=== PATIENT | male | born 1960 | race Caucasian/White ===

== ENCOUNTER 2021-08-02 15:03 | Emergency (ER) | payer BC ==
[~2021-08-02] VITALS: Ht 170.2 cm; Wt 91.0 kg
[2021-08-02] MEDS ORDERED: ORPHENADRINE CITRATE 60 MG/2 ML VIAL. ONE (15:56)
[2021-08-02] MEDS ORDERED: KETOROLAC 15 MG/ML VIAL. ONE (15:56)
[2021-08-02] MEDS ORDERED: ORPHENADRINE CITRATE 60 MG/2 ML VIAL. IM ONE (16:00)
[2021-08-02] MEDS ORDERED: KETOROLAC 15 MG/ML VIAL. IVP ONE (16:00)
[2021-08-02] MEDS ORDERED: HYDROcodone/APAP 5/325MG 1 TAB TABLET PO ONE (17:00)
--- NOTE | 2021-08-02 17:38 | RAD ---
EXAMINATION: CT lumbar spine without IV contrast. INDICATION:60 years, Male, low back pain. TECHNIQUE: Axial CT images of the lumbar spine was obtained. Coronal and sagittal reformatted perform ed. COMPARISON: None.. Exposure: One or more of the following individualized dose reduction techniques were utilized for thi s examination: 1. Automated exposure control 2. Adjustment of the mA and/or kV according to patient size 3. Use of iterative reconstruction technique. FINDINGS: The vertebral bodies are normal in height and alignment. No acute fracture or subluxation. Multilevel Schmorl's nodules in the thoracolumbar spine. Mild diffuse osteopenia. No lytic or sclerot ic lesion. Mild multilevel degenerative changes with disc space narrowing and small osteophytes. Mild bilateral facet arthropathy. No significant canal stenosis. Moderate bilateral neuroforaminal narrow ing at L3-4 and L4-5. Paravertebral soft tissue is unremarkable. Visualized abdominal structures are unremarkable, within limitation of noncontrast exam. Linear scarring versus atelectatic changes in th e left lung base. IMPRESSION: 1. No acute osseous abnormality. 2. Mild multilevel degenerative changes of the lumbar spine. 3. Moderate bilateral neuroforaminal narrowing at L3-4 and L4-5. Electronically signed by: Elba Bustos MD (08/02/2021 5:36 PM) [id number]
--- NOTE | 2021-08-02 18:06 | PHYS DOC ---
Past History Additional Past Medical Histor: CHronic back pain Past Surgical History: Other Additional Past Surgical Histo: Eye surgery X 3, stents in leg Alcohol Use: Rarely General Adult EDM: Chief Complaint: BACK PAIN OR INJURY HPI: HPI: Patient is a 60-year-old male who presents with low back pain. Patient states that he went to the chiropractor about a week ago. Patient states that today he was unable to get up off the ground for an hour until he can get EMS called due to back spasms. Denies urinary retention or loss of bowel. No saddle anesthesia. Patient just reporting spasms. No trauma or new injury. Patient has a history of chronic back pain. Review of Systems: Review of Systems: ROS At least 10 ROS systems have been reviewed and are negative except as documented in the HPI. General: Negative except as outlined in HPI above. Skin: Negative except as outlined in HPI above. HEENT: Negative except as outlined in HPI above. Neck: Negative except as outlined in HPI above. Respiratory: Negative except as outlined in HPI above.. Cardiovascular: Negative except as outlined in HPI above. Abdomen: Negative except as outlined in HPI above. : Negative except as outlined in HPI above. Back/MSK: Negative except as outlined in HPI above. Neuro: Negative except as outlined in HPI above. Psych: Negative except as outlined in HPI above. Current Medications: Current Meds: Current Medications Medications (Trade) Dose Ordered Sig/Evelyn Start Time Stop Time Status Last Admin Dose Admin Acetaminophen/ Hydrocodone Bitart (Lortab 5/325) 1 tab 1X ONCE 08/02/21 17:00 08/02/21 17:17 DC 08/02/21 16:55 1 TAB Ketorolac Tromethamine (Toradol 15mg Vial) 15 mg STK-MED ONCE 08/02/21 15:56 08/02/21 15:57 DC Orphenadrine Citrate (Norflex) 60 mg STK-MED ONCE 08/02/21 15:56 08/02/21 15:57 DC Allergies: Allergies: Allergies Coded Allergies Type Severity Reaction Last Updated Verified oxycodone Allergy Unknown 08/02/21 Yes Physical Exam: PE: Constitutional: Well developed, well nourished, no acute distress, non-toxic appearance. [] HENT: Normocephalic, atraumatic, bilateral external ears normal, oropharynx moist, no oral exudates, nose normal. [] Eyes: PERRLA, EOMI, conjunctiva normal, no discharge. [] Neck: Normal range of motion, no tenderness, supple, no stridor. [] Cardiovascular:Heart rate regular rhythm, no murmur [] Lungs & Thorax: Bilateral breath sounds clear to auscultation [] Abdomen: Bowel sounds normal, soft, no tenderness, no masses, no pulsatile masses. [] Skin: Warm, dry, no erythema, no rash. [] Back: Lower back tenderness, spasms Extremities: No tenderness, no cyanosis, no clubbing, ROM intact, no edema. [] Neurologic: Alert and oriented X 3, normal motor function, normal sensory function, no focal deficits noted. [] Psychologic: Affect normal, judgement normal, mood normal. [] Current Patient Data: Vital Signs: Vital Signs Date Time Temp Pulse Resp B/P (MAP) Pulse Ox O2 Delivery O2 Flow Rate FiO2 08/02/21 16:55 20 93 08/02/21 15:05 98.2 68 122/75 (91) EKG: EKG: [] Radiology/Procedures: Radiology/Procedures: []EXAMINATION: CT lumbar spine without IV contrast. INDICATION:60 years, Male, low back pain. TECHNIQUE: Axial CT images of the lumbar spine was obtained. Coronal and sagittal reformatted performed. COMPARISON: None.. Exposure: One or more of the following individualized dose reduction techniques were utilized for this examination: 1. Automated exposure control 2. Adjustment of the mA and/or kV according to patient size 3. Use of iterative reconstruction technique. FINDINGS: The vertebral bodies are normal in height and alignment. No acute fracture or subluxation. Multilevel Schmorl's nodules in the thoracolumbar s pine. Mild diffuse osteopenia. No lytic or sclerotic lesion. Mild multilevel degenerative changes with disc space narrowing and small osteophytes. Mild bilateral facet arthropathy. No significant canal stenosis. Moderate bilateral neuroforaminal narrowing at L3-4 and L4-5. Paravertebral soft tissue is unremarkable. Visualized abdominal structures are unremarkable, within limitation of noncontrast exam. Linear scarring versus atelectatic changes in the left lung base. IMPRESSION: 1. No acute osseous abnormality. 2. Mild multilevel degenerative changes of the lumbar spine. 3. Moderate bilateral neuroforaminal narrowing at L3-4 and L4-5. Electronically signed by: Elba Bustos MD (08/02/2021 5:36 PM) [id number] Heart Score: C/O Chest Pain: No Risk Factors: Risk Factors: DM, Current or recent (<one month) smoker, HTN, HLP, family history of CAD, obesity. Risk Scores: Score 0 - 3: 2.5% MACE over next 6 weeks - Discharge Home Score 4 - 6: 20.3% MACE over next 6 weeks - Admit for Clinical Observation Score 7 - 10: 72.7% MACE over next 6 weeks - Early Invasive Strategies Course & Med Decision Making: Course & Med Decision Making Pertinent Labs and Imaging studies reviewed. (See chart for details) [] 58-year-old male presents with lower back pain. Patient has a history of chronic back pain. Patient was seen at the chiropractor a week ago and today he started having an increase in pain. Patient states that he was unable to get off the floor for an hour before EMS could be called. Patient was given IV fentanyl with EMS. CT lumbar spine ordered to rule out any acute fracture. Toradol and Norflex given. Patient still reporting pain. Patient given p.o. hydrocodone. Patient's pain 8/10, 1 of Dilaudid given. Patient given lidocaine patch. Advised patient that if he was unable to have his pain controlled and able to ambulate that he would have to stay the night. Patient agreed with that plan. CT lumbar spine was negative for any acute abnormalities. Discussed results with patient. Patient is able to ambulate on his own. Patient states that the medicine helped. Sending patient home with Flexeril, hydrocodone and instructions to follow-up with PCP. Ice to the tender area. Discussed return precautions in length. Patient reports he understands discharge instructions and verbalizes return precautions. Patient is able to ambulate on his own. Pain has improved. Hemodynamically stable. Dragon Disclaimer: Floyd Disclaimer: This electronic medical record was generated, in whole or in part, using a voice recognition dictation system. Departure Departure: Impression: Primary Impression: Low back pain Qualified Codes: M54.50 - Low back pain, unspecified; G89.29 - Other chronic pain Disposition: HOME / SELF CARE / HOMELESS Condition: STABLE Referrals: JAMEL ROSE MD (PCP) Patient Instructions: Back Pain, Adult Additional Instructions: You were seen in the emergency room for lower back pain. CT of your back was unremarkable for an acute injury. You were given pain medication which helped with your discomfort. Sending you home with a prescription for Flexeril, hydrocodone. You can also take ibuprofen for breakthrough pain. Please return to the emergency room if you have worsening symptoms or concerns such as unable to ambulate, loss of bowel, urinary retention. Follow up with your PCP on Thursday for further evaluation. EMERGENCY DEPARTMENT GENERAL DISCHARGE INSTRUCTIONS Thank you for coming to [facility] (ED) today and trusting us with you care. We trust that you had a positivie experience in our Emergency Department. If you wish to speak to the department management, you may call the director at [phone]. YOUR FOLLOW UP INSTRUCTIONS ARE FOLLOWS: 1. Do you have a private Doctor? If you do not have a private doctor, please ask for a resource list of physicians or clinics that may be able to assist you with follow up care. 2. The Emergency Physician has interpreted your x-rays. The X-Ray specialist will also review them. If there is a change in the findings, you will be notified in 48 hours when at all possible. 3. A lab test or culture has been done, your results will be reviewed and you will be notified if you need a change in treatment. ADDITIONAL INSTRUCTIONS AND INFORMATION: 1. Your care today has been supervised by a physician who is specially trained in emergency care. Many problems require more than one evaluation for a complete diagnosis and treatment. We recommend that you schedule your follow up appointment as recommended to ensure complete treatment of you illness or injury. If you are unable to obtain follow up care and continue to have a problem, or if your condition worsens, we recommend that you return to the ED. 2. We are not able to safely determine your condition over the phone nor are we able to give sound medical advice over the phone. For these safety reasons, if you call for medical advice we will ask you to come to the ED for further evaluation. 3. If you have any questions regarding these discharge instructions please call the ED at [phone]. SAFETY INFORMATION: In the interest of safety, wellness, and injury prevention; we encourage you to wear your sealbelt, if you smoke; quite smoking, and we encourage family to use a protective helmet for bicycling and other sporting events that present an increased risk for head injury. IF YOUR SYMPTOMS WORSEN OR NEW SYMPTOMS DEVELOP, OR YOU HAVE CONCERNS ABOUT YOUR CONDITION; OR IF YOUR CONDITION WORSENS WHILE YOU ARE WAITING FOR YOUR FOLLOW UP APPOINTMENT; EITHER CONTACT YOUR PRIMARY CARE DOCTOR, THE PHYSICIAN WHOSE NAME AND NUMBER YOU WERE GIVEN, OR RETURN TO THE ED IMMEDIATELY. Scripts Hydrocodone Bit/Acetaminophen (HYDROCODONE-APAP 5-325 ) 1 Each Tablet 1-2 TAB PO PRN Q6HRS PRN for PAIN for 3 Days, #12 TAB 0 Refills Prov: JUDE MORAN APRN 08/02/21 Cyclobenzaprine Hcl (CYCLOBENZAPRINE HCL) 10 Mg Tablet 1 TAB PO TID for PAIN for 7 Days, #21 TAB Prov: JUDE MORAN APRN 08/02/21 JUDE MORAN APRN Aug 02, 2021 18:06
[2021-08-02] MEDS ORDERED: HYDROmorphone PF 1 MG/ML DISP.SYRIN IVP ONE (18:15)
[2021-08-02] MEDS ORDERED: LIDOCAINE (700MG/PATCH) PATCH. ONE (18:21)
[2021-08-02] MEDS ORDERED: LIDOCAINE (700MG/PATCH) PATCH. TD ONE (18:25)
[2021-08-02] MEDS ORDERED: CYCL10TA19 PO (19:35)
[2021-08-02] MEDS ORDERED: HYDR-2155 PO (19:35)
[2021-08-02] MEDS ORDERED: CYCLOBENZAPRINE 10MG 4TABLET STARTPACK PO ONE (19:45)
[2021-08-02] MEDS ORDERED: ACETAMINOPHEN/CODEINE 300/30MG 4TABLET STARTPACK. PO ONE (19:45)
[2021-08-02 20:02] VITALS: BP 136/86
[2021-08-02] MEDS ORDERED: PATCH REMOVAL. MC SCH (21:00)
== END 2021-08-02 20:01 | disposition home or self-care (01) ==
LOC: ER 15:03
DX: M54.59 Other low back pain (principal); G89.29 Other chronic pain; Z88.5 Allergy status to narcotic agent
CPT/HCPCS: 72131; 96372; 96374; 96375; 99285; J1170; J1885; J2360